=== PATIENT | male | born 1985 | race Two or more races ===

== ENCOUNTER → 2025-04-05 | Outpatient (CLI) | payer BC, MEDICAID, SELFPAY ==
--- NOTE | 2025-04-05 16:27 | XR_ITS ---
Examination: Shoulder,right, 3 views Technique: Shoulder AP internal rotation, AP external rotation, Y view shoulder, 3 views Exam date and time :April 05, 2025, 1629 hrs. Indications: Sports injury to the shoulder one month ago with shoulder pain. Findings: No shoulder fracture or dislocation. No AC joint separation. Impression: No shoulder fracture or dislocation. No arthritic change.
--- NOTE | 2025-04-05 16:27 | XR_ITS ---
Examination: Humerus 2 views right Technique: Humerus, AP lateral 2 views Date and time of exam: April 05, 2025 1629 hrs. Indications: Sports injury to the arm one month ago with arm pain. Findings: Underpenetrated films No fracture depicted Impression: Limited study with no fracture depicted
== END | disposition home or self-care (01) ==
LOC: CDIM 16:20
PROVIDERS: PCP Nurse Practitioner Family; Referring Provider Nurse Practitioner Family; Visit Provider Nurse Practitioner Family
DX: S49.91XA Unspecified injury of right shoulder and upper arm, initial encounter (principal); Y93.79 Activity, other specified sports and athletics
CPT/HCPCS: 73030; 73060

== ENCOUNTER 2025-05-21 12:20 | Day surgery (SDC) | payer BC, MEDICAID, SELFPAY ==
[2025-05-20 12:40] VITALS: BMI 34.0
[2025-05-21] VITALS (8 sets, daily range): BP systolic 116–154; BP diastolic 78–96; PULSE 53–58; RESP 12–18; TEMP 36.4–36.7; O2SAT 94–100; BMI 34.9
--- NOTE | 2025-05-21 13:05 | SUR.PREOP ---
1305- WHILE INSERTING IV PATIENT HAD VAGAL RESPONSE, BECAME PALE WITH BRIEF LOC. HOB DOWN AND OXYGEN AT 3 L/M APPLIED, RESPONSIVE, STATES FEELS TIRED. O2 SAT 96%, HR 55. RESTING WITH SKIN COLOR IMPROVING. RESPIRATIONS UNLABORED. WILL CONTINUE TO MONITOR
--- NOTE | 2025-05-21 13:23 | SUR.PREOP ---
1305- WHILE INSERTING IV PATIENT HAD A VAGAL RESPONSE, BECAME PALE AND BRIEFLY LOST CONCIOUSNESS. HOB FLAT, O2 APPLIED, PATIENT RESPONSIVE BUT STATES FEELS TIRED. WILL MONITORO2 SAT 96% WITH O2 AT 3L/M
[2025-05-21] MEDS: RINGERS LACTATED 500 ML 500 ML 20 ML IV (14:20)
[2025-05-21] MEDS: MIDAZOLAM INJ 1 MG/ML VIAL 2 ML (ASD USE ONLY) 2 MG IVP (14:21)
[2025-05-21] MEDS: fentaNYL CIT INJ 50 mCg/ML AMP 2ML (ASD USE ONLY) IVP (14:22)
[2025-05-21] MEDS: BENZOCAINE 20% (Hurricaine) SPRAY 1 DOSE TOP (14:24)
== END 2025-05-21 15:03 | disposition home or self-care (01) ==
PROVIDERS: PCP Family Medicine; Referring Provider Internal Medicine Gastroenterology; Visit Provider Internal Medicine Gastroenterology
PROC: (CPT 43239; principal; 2025-05-21 09:00)
DX: K29.71 Gastritis, unspecified, with bleeding (principal); K44.9 Diaphragmatic hernia without obstruction or gangrene; E66.9 Obesity, unspecified; I10 Essential (primary) hypertension; Z68.35 Body mass index [BMI] 35.0-35.9, adult; K21.01 Gastro-esophageal reflux disease with esophagitis, with bleeding
CPT/HCPCS: 43239; A4649; J1200; J2250; J2470; J3010; J7120; A9270

== ENCOUNTER 2025-05-23 09:24 | Day surgery (SDC) | payer BC, MEDICAID, SELFPAY ==
[2025-05-23] VITALS (7 sets, daily range): BP systolic 118–149; BP diastolic 75–94; PULSE 58–71; RESP 14–19; TEMP 36.2–36.8; O2SAT 95–99; BMI 34.2
[2025-05-23] MEDS: RINGERS LACTATED 500 ML 500 ML 20 ML IV (11:54)
[2025-05-23] MEDS: MIDAZOLAM INJ 1 MG/ML VIAL 2 ML (ASD USE ONLY) 2 MG IVP (11:57)
[2025-05-23] MEDS: fentaNYL CIT INJ 50 mCg/ML AMP 2ML (ASD USE ONLY) IVP (11:57)
== END 2025-05-23 12:45 | disposition home or self-care (01) ==
PROVIDERS: Referring Provider Internal Medicine Gastroenterology; Visit Provider Internal Medicine Gastroenterology
PROC: 0DBE8ZX Excision of Large Intestine, Via Natural or Artificial Opening Endoscopic, Diagnostic (ICD-10-PCS; CPT 45380; principal; 2025-05-23 12:45)
DX: D12.4 Benign neoplasm of descending colon (principal); K52.9 Noninfective gastroenteritis and colitis, unspecified; K64.8 Other hemorrhoids; E78.00 Pure hypercholesterolemia, unspecified; I10 Essential (primary) hypertension; K57.31 Diverticulosis of large intestine without perforation or abscess with bleeding
CPT/HCPCS: 45380; A4649; J1200; J2250; J3010; J7120

== ENCOUNTER 2025-06-30 17:10 | Emergency (ER) | payer SELFPAY ==
--- NOTE | 2025-06-30 18:06 | PC.NURSE ---
no answer when called back to rme to be seen
--- NOTE | 2025-06-30 18:24 | PC.NURSE ---
no answer x 2 when called back to e to be seen
--- NOTE | 2025-06-30 18:37 | PC.NURSE ---
called pt back, no answer at this time
== END 2025-06-30 23:57 | disposition left against medical advice (07) ==
LOC: SERX 18:52
PROVIDERS: Emergency Provider Emergency Medicine
DX: Z53.21 Procedure and treatment not carried out due to patient leaving prior to being seen by health care provider (principal)
CPT/HCPCS: 99281

== ENCOUNTER 2025-07-19 09:45 | Emergency (ER) | payer BC, MEDICAID, SELFPAY ==
[2025-07-19 10:05] VITALS: BP 137/90; PULSE 70; RESP 18; TEMP 37.3; O2SAT 98; BMI 35.1
--- NOTE | 2025-07-19 10:21 | PD.EDLOWEX ---
Lower Extremity Injury RME/HPI General Chief Complaint: Extremity Injury, Lower Stated Complaint: R KNEE PAIN & INJURY X2 WEEKS Time Seen by Provider: 07/19/25 09:55 Arrival date/time: 07/19/25 09:45 RME / HPI RME / HPI Narrative: 39-year-old male presents to the ER complaining of right knee pain x 2 weeks he saw his primary care doctor at onset of pain as he had an injury and fell sustaining a sprain to his left toe and had negative x-rays there as well as negative x-rays for his right knee and he is currently in the process of obtaining an MRI approval which she was referred for by his PCP but he presents to the ER as his pain has been gradually worsening and his right knee feels unsteady. Denies any fever, new trauma, numbness, tingling, weakness Related Data Home Medications ?Medication ?Instructions ?Recorded ?Confirmed No Known Home Medications 05/21/25 05/22/25 Allergies Allergy/AdvReac Type Severity Reaction Status Date / Time No Known Allergies Allergy Verified 07/19/25 09:47 ED Exam Narrative Physical exam: Constitutional: Vital Signs Reviewed. Well appearing. No acute distress. Not toxic appearing. Head: Normocephalic, atraumatic. Eyes: Conjunctiva clear. ENT: Mucous membranes moist. Neck: Trachea midline. Normal range of motion. No nuchal rigidity. Respiratory: Normal effort. No respiratory distress or accessory muscle use. Neuro: Alert and oriented. Speech normal. No focal gross motor or sensory deficits observed. Skin: Warm, dry, normal color. Right knee: Positive tenderness to palpation to medial aspect of knee. Positive mild laxity upon valgus stress to the knee. Normal range of motion and strength 4+ out of 5 secondary to pain. Negative erythema, warmth, ecchymosis. Compartments remain soft and dorsalis pedis pulse remains 2+ regular rate and rhythm for right lower extremity. Left foot: Positive mild tenderness to palpation and edema noted to left fourth digit. Mild limited range of motion and strength 4+ out of 5 secondary to pain for that digit. Cap refill less than 2 seconds. No erythema. Psych: Pleasant. Normal affect. Cooperative. Course Quality Measures none Orders Category Date Time Status Apply knee immobilizer NOW Care 07/19/25 10:25 Active Crutches .NOW Care 07/19/25 10:25 Active Miscellaneous Nursing Order X1 Care 07/19/25 10:[address] knee RT wo con Stat Exams 07/19/25 11:11 Completed Ketorolac Inj [Toradol Inj] Med 07/19/25 10:26 Discontinued 30 mg IM X1 ONE Vital Signs Vital signs: Vital Signs Temperature 99.1 F 07/19/25 10:05 Pulse Rate 70 07/19/25 10:05 Respiratory Rate 18 07/19/25 10:05 Blood Pressure 137/90 H 07/19/25 10:05 Pulse Oximetry (%) 98 07/19/25 10:05 Oxygen Delivery Method Room Air 07/19/25 10:05 Extremity Injury, Lower MDM Narrative MDM Narrative:: MDM: Concern for internal knee derangement resulting in effusion from sprain versus strain versus occult fracture or dislocation versus medial collateral ligament sprain No infectious etiology and low suspicion for septic arthritis given lack of circumferential erythema, heat, irritable joint as patient has a fairly good mid range motion but is painless Extremity remains distally neurovascular intact with soft compartments X-ray without gross fracture or bony malalignment I offered patient x-rays again of his left toe however he declined I advised him he should be using mikki tape for his sprain Plan for RICE therapy, knee immobilizer, crutches weightbearing as tolerated, mikki tape left 4th and 5th toes, pain and nausea management as needed f/u with pmd and ortho in 1-2 days, strict ER return precautions Patient data External records reviewed:: [facility] previous records Clinical information provided by:: patient Social determinants that could affect healthcare access:: none Patient has the following chronic illnesses:: As noted How is presenting disease/condition affected by chronic disease/condition?: no chronic disease Evaluation data The following diagnostics were reviewed and interpreted by me:: radiology exam(s) Lab and/or radiology exams considered but not ordered:: Additional Labs and radiology considered, but not ordered as they were not clinically indicated at this time. Interpretation Summary: effusion of the x-ray no gross fracture or bony malalignment Medications / Prescriptions Medications or Prescriptions considered but not ordered:: I ordered medications based on the patient?s clinical needs and assessment, as documented in the chart. For medications not prescribed, they were not indicated for the patient's current condition, and I determined they were unnecessary at this time to avoid potential risks or complications. Medication administrations:: Medication Administration History Discontinued Medications Ketorolac Tromethamine (Ketorolac Inj 30 Mg/Ml Vial) 30 mg IM X1 ONE Stop: 07/19/25 10:27 Last Admin: 07/19/25 10:45 Dose: 30 mg Documented By: As noted Consultations Consultation(s) initiated? (list below): No Diagnosis Extremity Injury, Lower Differential Diagnosis: acute internal derangement of knee Most likely diagnosis given after review of the tests above:: Has noted Admission Indicated Admission indicated?: not indicated Admission Request Was there a request for admission?: No Disposition Plan Disposition Plan: Discharge Discharge Attestation Discharge Attestation: The patient and all family members were given an opportunity to ask questions and understood the discharge instructions. Discharge instructions specifically effects, indications for sooner follow up or return to the emergency department, and the expected course of current diagnosis. Patient condition: Stable Discharge Plan Plan Patient Disposition: HOME (Self Care) Patient condition on transfer: Stable Prescriptions/Referrals Prescriptions/Med Rec: No Action No Known Home Medications Referrals: Kamron Carmona PA-C [Primary Care Provider] - In 1 week Problem List Clinical Impression: Acute internal derangement of knee Patient/Caregiver Discharge Instructions Additional Instructions: Follow up with your primary medical doctor and an orthopedic doctor within 48-72 hours. Return to the Emergency Room immediately for any new, worsening, continuing symptoms or any concerns at all. Return to the Emergency Room within 48-72 hours if you are unable to follow up with your primary medical doctor and an orthopedic doctor within 48-72 hours. Print Language: Yoruba Stand Alone Forms: Nu Award Info., Patient Portal Info Letter TRACY/EMILY Supervising Physician SHANIKA Supervising Physician: Dr. Winter
[2025-07-19] MEDS: KETOROLAC INJ 30 MG/ML VIAL IM (10:45)
--- NOTE | 2025-07-19 11:11 | XR_ITS ---
Examination: CT right knee, without contrast. 2-D sagittal reconstructions. 2-D coronal reconstructions. 3-D reconstructions. Date and time of exam: July 19, 2025, 1143 hours INDICATION: Right knee pain beginning 3 weeks ago CTDI: vol (mGy): 9.40 DLP: (mGycm): 260 Technique: Multiple 1.25 mm axial sections of the right knee without intravenous contrast have been obtained. 2-D sagittal and coronal reconstructions have been obtained. 3-D reconstructions have been obtained. Low dose protocols were performed. One or more of the following dose reduction techniques were used; automated exposure control, adjustment of the mA and/or KV according to patient size, use of iterative reconstruction technique. Findings: Minimal narrowing medial joint space No fracture or dislocation Moderate knee effusion, seen with internal derangement of the knee Mild narrowing lateral patellofemoral joint IMPRESSION: No fracture Minimal arthritic change Moderate knee effusion, seen with internal derangement of the knee Recommend elective MRI knee without contrast follow-up
== END 2025-07-19 17:45 | disposition home or self-care (01) ==
PROVIDERS: Emergency Provider Physician Assistant; PCP Physician Assistant
DX: S83.104A Unspecified dislocation of right knee, initial encounter (principal); W19.XXXA Unspecified fall, initial encounter
CPT/HCPCS: 73700; 96372; 99283; J1885